=== PATIENT | male | born 1950 ===

== ENCOUNTER 2017-10-07 07:22 | Day surgery (SDC) | payer OTHER ==
[~2017-10-07 07:22] MED LIST: CYCLOBENZAPRINE10 MG PO; DICLOFENAC SODI50 MG PO; EFFEXOR XR150 MG PO; LISINOPRIL-HCTZ1 TA3 PO; RESTORIL30 M1 PO; VALIUM PO; VITAMIN B-121000 MC2 SL; VOLTAREN-XR100 MG PO; XARELTO20 MG PO
== END 2017-10-07 12:30 | disposition home or self-care (01) ==
LOC: AMB-ENDOS 07:22
DX: K51.40 Inflammatory polyps of colon without complications (principal); K64.1 Second degree hemorrhoids

== ENCOUNTER 2019-06-01 10:30 | Day surgery (SDC) | payer OTHER | END 2019-06-01 15:00 | disposition home or self-care (01) | LOC: AMB-ENDOS 10:30 | DX: K62.89 Other specified diseases of anus and rectum (principal); K57.30 Diverticulosis of large intestine without perforation or abscess without bleeding; K64.8 Other hemorrhoids ==